=== PATIENT | male | born 2005 | race Two or more races ===

== ENCOUNTER 2023-05-06 01:02 | Emergency (ER) | payer SELFPAY ==
[~2023-05-06] VITALS: Ht 165.1 cm; Wt 81.8 kg
[2023-05-06 01:29] VITALS: BP 121/77; PULSE 73; RESP 18; O2SAT 98
== END 2023-05-06 05:52 | disposition left against medical advice (07) ==
LOC: ER 01:02
DX: R68.84 Jaw pain (principal); Z53.21 Procedure and treatment not carried out due to patient leaving prior to being seen by health care provider